=== PATIENT | male | born 1990 | race Caucasian/White ===

== ENCOUNTER 2019-03-17 07:57 | Emergency (ER) | payer OTHER ==
--- NOTE | 2019-03-17 09:51 | ED Physician Documentation ---
PD HPI ABD PAIN - Stated complaint Stated Complaint: ABD PX - Chief complaint Chief Complaint: Abd Pain - History obtained from History obtained from: Patient - History of Present Illness Timing - onset: Last night Timing - duration: Hours Timing - details: Abrupt onset, Still present Quality: Sharp, Pain Location: LLQ Improved by: Laying still Worsened by: Moving, Position, Palpation Associated symptoms: No: Nausea, Vomiting, Hematemesis, Diarrhea, Constipation Similar symptoms before: Has not had sx before Recently seen: Not recently seen - Additional information Additional information: 28-year-old male 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 Review of Systems Constitutional: denies: Fever Eyes: denies: Decreased vision Ears: denies: Ear pain Nose: denies: Rhinorrhea / runny nose, Congestion Throat: denies: Sore throat Cardiac: denies: Chest pain / pressure Respiratory: denies: Dyspnea GI: reports: Abdominal Pain. denies: Nausea, Vomiting, Constipation, Diarrhea : denies: Dysuria, Frequency Skin: denies: Rash Musculoskeletal: denies: Neck pain, Back pain, Extremity pain Neurologic: denies: Generalized weakness, Focal weakness, Numbness PD PAST MEDICAL HISTORY - Past Medical History Past Medical History: Yes Cardiovascular: None Respiratory: None Endocrine/Autoimmune: None GI: None : None HEENT: None Psych: None Musculoskeletal: None Derm: None - Past Surgical History Past Surgical History: Yes - Allergies Allergies/Adverse Reactions: Allergies Allergy/AdvReac Type Severity Reaction Status Date / Time amoxicillin trihydrate * Allergy Unknown Verified 11/24/13 14:40 [From Augmentin] potassium clavulanate * Allergy Unknown Verified 11/24/13 14:40 [From Augmentin] - Social History Does the pt smoke?: Yes Smoking Status: Current every day smoker Does the pt drink ETOH?: Yes Does the pt have substance abuse?: Yes - Immunizations Immunizations are current?: No - POLST Patient has POLST: No PD ED PE NORMAL - Vitals Vital signs reviewed: Yes (hypertensive ) - General General: Alert and oriented X 3, No acute distress, Well developed/nourished - HEENT HEENT: Atraumatic, PERRL, EOMI - Neck Neck: Supple, no meningeal sign - Cardiac Cardiac: RRR, No murmur - Respiratory Respiratory: No respiratory distress, Clear bilaterally - Abdomen Abdomen: Soft, Other (LLQ tenderness to palpation is specific to a small area and extinquishes with time. The bedside ultrasound of the area does not demonstrate a defect in the fascia. 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, No motor deficit, No sensory deficit, Normal speech Eye Opening: Spontaneous Motor: Obeys Commands Verbal: Oriented GCS Score: 15 - Psych Psych: Normal mood, Normal affect Results - Vitals Vitals: Vital Signs - 24 hr 03/17/19 03/17/19 08:13 10:05 Temperature 36.4 C L Heart Rate 98 73 Respiratory 14 16 Rate Blood Pressure 148/82 H 140/93 H O2 Saturation 98 96 Oxygen O2 Source Room air Procedures - Bedside sono Bedside sono by EMP: With use of bedside ultrasound with high-frequency probe the abdominal wall was explored the fascia appears to be intact especially over the area where the patient has is most significant tenderness. There is no evidence of herniation. PD MEDICAL DECISION MAKING - ED course Complexity details: reviewed old records, considered differential, d/w patient ED course: Previously well 28-year-old male with a left-sided abdominal strain. We will give him 3 days off work. Departure - Departure Disposition: 01 Home, Self Care Clinical Impression: Abdominal wall strain Condition: Stable Instructions: ED Strain Abdominal Muscle Follow-Up: [facility] [Provider Group] Forms: Activity restrictions Discharge Date/Time: 03/17/19 10:06
[2019-03-17 10:06] VITALS: BP 140/93
== END 2019-03-17 10:06 | disposition home or self-care (01) ==
LOC: ED 07:57
DX: S39.011A Strain of muscle, fascia and tendon of abdomen, initial encounter (principal); X50.0XXA Overexertion from strenuous movement or load, initial encounter; Y93.H2 Activity, gardening and landscaping; Y92.89 Other specified places as the place of occurrence of the external cause; Y99.0 Civilian activity done for income or pay; F17.200 Nicotine dependence, unspecified, uncomplicated
CPT/HCPCS: 1040M; 99282; 99283

== ENCOUNTER 2021-06-02 13:04 | Emergency (ER) | payer SELFPAY ==
--- NOTE | 2021-06-02 14:31 | ED Physician Documentation ---
PD HPI HEENT - Stated complaint Stated Complaint: FACE PX - Chief complaint Chief Complaint: Heent - History obtained from History obtained from: Patient - Additional information Additional information: Patient comes emergency department chief complaint of sinus congestion for the last 5 days. He states he snorted cocaine 2 days before symptoms started, but did not really have any symptoms at that time. Patient states that he has not had any fevers or chills. No foul-smelling drainage from his nose. He states it just feels very "full". He also states that if he blows his nose, he will hear a little bubbling, whistling sound coming out of his right nostril for about 10 seconds afterward. Had somewhat of a congested cough but does admit to smoking 2 packs of cigarettes a day, in addition to smoking marijuana on a nearly daily basis. No sore throat. Patient states he does not feel generally ill otherwise. No other complaints at this time. Review of Systems Ten Systems: 10 systems reviewed and negative Constitutional: reports: Reviewed and negative Eyes: reports: Reviewed and negative Ears: reports: Reviewed and negative Nose: reports: Sinus pressure / pain Throat: reports: Reviewed and negative Cardiac: reports: Reviewed and negative Respiratory: reports: Reviewed and negative GI: reports: Reviewed and negative : reports: Reviewed and negative Skin: reports: Reviewed and negative Musculoskeletal: reports: Reviewed and negative Neurologic: reports: Reviewed and negative Psychiatric: reports: Reviewed and negative Endocrine: reports: Reviewed and negative Immunocompromised: reports: Reviewed and negative PD PAST MEDICAL HISTORY - Past Medical History Past Medical History: Yes Cardiovascular: None Respiratory: Other Endocrine/Autoimmune: None GI: None : None HEENT: None Psych: None Musculoskeletal: None Derm: None Other Past Medical History: Chronic brochitis. - Past Surgical History Past Surgical History: Yes - Present Medications Home Medications: Ambulatory Orders Medication Instructions Recorded Confirmed Pseudoephedrine [Sudafed] 60 mg PO Q6H PRN #20 tablet 06/02/21 - Allergies Allergies/Adverse Reactions: Allergies Allergy/AdvReac Type Severity Reaction Status Date / Time amoxicillin trihydrate * Allergy Unknown Verified 06/02/21 13:24 [From Augmentin] potassium clavulanate * Allergy Unknown Verified 06/02/21 13:24 [From Augmentin] - Social History Does the pt smoke?: Yes Smoking Status: Current every day smoker Does the pt drink ETOH?: No Does the pt have substance abuse?: Yes Substance Use and Type: Marijuana, Cocaine/Crack - Immunizations Immunizations are current?: Yes - POLST Patient has POLST: No PD ED PE NORMAL - Vitals Vital signs reviewed: Yes - General General: Alert and oriented X 3, No acute distress, Well developed/nourished - HEENT HEENT: Atraumatic, PERRL, EOMI, Moist mucous membranes, Other (Slight edema of right maxillary soft tissue. No mass or fluctuance. No dental tenderness. 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, Normal speech - Psych Psych: Normal mood, Normal affect Results - Vitals Vitals: Vital Signs - 24 hr 06/02/21 06/02/21 13:19 15:32 Temperature 36.3 C L 36.8 C Heart Rate 84 71 Respiratory 16 16 Rate Blood Pressure 143/86 H 131/97 H O2 Saturation 97 98 Oxygen O2 Source Room air - Rads (name of study) sinus XR Radiology: Final report received, See rad report (sinus thickening bilaterally) PD MEDICAL DECISION MAKING - ED course Complexity details: reviewed results, re-evaluated patient, considered differential, d/w patient ED course: The patient was worked up with a sinus x-ray series, which showed some generalized thickening of sinus mucosa. Pt was afebrile, and without drainage, and I suspected inflammation from the smoking and drug use. I discussed with the pt the need to stop this. We have also discussed symptomatic management at home. Departure - Departure Disposition: Home, Self Care Clinical Impression: Sinusitis Qualifiers: Sinusitis location: maxillary Chronicity: acute Recurrence: non-recurrent Qualified Code(s): J01.00 - Acute maxillary sinusitis, unspecified Condition: Stable Instructions: ED Sinusitis No Abx Prescriptions: Pseudoephedrine [Sudafed] 60 mg PO Q6H PRN #20 tablet PRN Reason: Nasal Congestion Comments: Your x-ray shows some inflammation of the lining of your sinuses, but no fluid collection that is concerning for pus. Most likely, your sinus inflammation is a combination of the smoking, cocaine, and then perhaps a viral or allergic source on top of that. Please take the decongestants that have been prescribed. It is advisable to leave off use of the nasal sprays, as you can have a rebound congestion from using these for too long. Please follow-up with your primary care physician if you are not feeling better in a week. Discharge Date/Time: 06/02/21 15:33
--- NOTE | 2021-06-02 14:53 | XRAY Report ---
PROCEDURE: Sinus Complete INDICATIONS: swelling/congestion R max sinus TECHNIQUE: 3 views of the sinuses were acquired. COMPARISON: None FINDINGS: Sinuses: Mucosal thickening causes near complete opacification of the right maxillary sinus. Mucosal thickening causes complete opacification left maxillary sinus. Frontal sinuses are normally aerated. No air-fluid levels identified. The visualized mastoids also appear clear. Bones: No suspicious bony lesions. Nasal septum is midline. IMPRESSION: Bilateral maxillary sinus mucosal thickening which could be inflammatory or neoplastic. Reviewed by: Elsy French MD, PhD on 06/02/2021 2:52 PM PDT Approved by: Elsy French MD, PhD on 06/02/2021 2:52 PM PDT Station ID: [id number]
[2021-06-02 15:33] VITALS: BP 131/97
== END 2021-06-02 15:33 | disposition home or self-care (01) ==
LOC: ED 13:04
DX: J01.00 Acute maxillary sinusitis, unspecified (principal); F17.210 Nicotine dependence, cigarettes, uncomplicated
CPT/HCPCS: 99283; 99284